=== PATIENT | female | born 1960 | race Caucasian/White ===

== ENCOUNTER → 2020-10-03 10:58 | Outpatient (CLI) | payer BC, SELFPAY ==
--- NOTE | ~2020-10-03 | XR_ITS ---
XR hip LT 2V w AP pelvis 10/03/2020 11:20 Indication: Inguinal pain. Procedure: AP pelvis and 2 views left hip Comparison: No prior studies for comparison. Findings: There is bilateral osteoarthritis of the hips, left greater than right. No fracture or trau matic malalignment. No significant soft tissue abnormality. No radiopaque foreign bodies. Impression: 1: Bilateral osteoarthritis of the hips, left greater than right. Reviewed, dictated and finalized at location B. ESSOR OF ASTRONOMY Impression: 1: Bilateral osteoarthritis of the hips, left greater than right.
== END ==
PROVIDERS: PCP Nurse Practitioner Family; Visit Provider Nurse Practitioner Family
DX: R10.2 Pelvic and perineal pain (principal); M16.0 Bilateral primary osteoarthritis of hip
CPT/HCPCS: 73502

== ENCOUNTER → 2023-07-23 14:50 | Outpatient (CLI) | payer BC, SELFPAY ==
--- NOTE | ~2023-07-23 | DEXA_ITS ---
Bone Density Report Name: TOBY MIRELES Age: 63 Sex: Female Ethnicity: White Date of : 1960 Indication: postmenopausal; screening for osteoporosis; height loss; Referring Provider: Jessica, Serena Study: Bone densitometry was performed. Exam Date: July 23, 2023 Accession number: [id number] Bone Density: Region BMD T-score Z-score Classification AP Spine (L1, L2, L3) 0.904 -1.0 0.6 Normal Femoral Neck (Left) 0.678 -1.5 -0.1 Osteopenia Total Hip (Left) 0.658 -2.3 -1.2 Osteopenia Femoral Neck (Right) 0.786 -0.6 0.8 Normal Total Hip (Right) 0.734 -1.7 -0.6 Osteopenia Total Hip Mean 0.696 -2.0 -0.9 Osteopenia World Health Organization criteria for BMD impression classify patients as: Normal (T-score at or above -1.0), Osteopenia (T-score between -1.0 and -2.5), or Osteoporosis (T-score at or below -2.5). 10-year Fracture Risk(1): Major Osteoporotic Fracture 8.6% Hip Fracture 0.8% Reported Risk Factors: [place] (), Neck BMD=0.678, BMI=24.4 (1) FRAX(R) Version 3.08. Fracture probability calculated for an untreated patient. Fracture probability may be lower if the patient has received treatment. Clinical Information Provided by Patient: Has used the following medications: Vitamin D Patient maximum height was 68 Menopause Age: 50 No regular weight bearing exercise Drinks caffeinated beverages Onset of menses at age 14 Number of children 2 Impression: The patient has low bone mass, based on the Left Total Hip T-score. The patient has an estimated ten-year risk of hip fracture of 0.8% and an estimated ten-year risk of major fracture of 8.6%, based on the WHO FRAX algorithm. Discussion: BONE DENSITY IS LOW AT ONE OR MORE SKELETAL SITES. This patient's lowest T-score is low at one or more skeletal sites. It meets the World Health Organization's (WHO) criteria for ?low bone mass? (T-score between -1.0 and -2.5). The patient's 10-year risk of fracture as calculated by FRAX is less than the threshold where pharmacological therapy is recommended by the National Osteoporosis Foundation (NOF). However, all treatment decisions require clinical judgment and consideration of individual patient factors, including patient preferences, comorbidities, previous drug use, risk factors not captured in the FRAX model (e.g., frailty, falls, vitamin D deficiency, increased bone turnover, interval significant decline in bone density) and possible under or overestimation of fracture risk by FRAX. The patient should follow a healthful lifestyle (good nutrition with adequate calcium and vitamin D, and appropriate weight-bearing exercise). Follow-Up: Consider repeating this study in 2 to 3 years to reassess this patient's status, or sooner if there is some new clinical indication. Reported b
== END ==
PROVIDERS: PCP Nurse Practitioner; Visit Provider Nurse Practitioner
DX: Z13.820 Encounter for screening for osteoporosis (principal); M85.852 Other specified disorders of bone density and structure, left thigh; M85.851 Other specified disorders of bone density and structure, right thigh
CPT/HCPCS: 77080

== ENCOUNTER 2023-08-19 01:00 | Day surgery (SDC) | payer BC, SELFPAY ==
[2023-07-30 08:52] VITALS: BMI 24.3
--- NOTE | 2023-08-17 12:17 | SUR.PREOP ---
Patient called regarding upcoming procedure. Reviewed preop instructions, appointment times, and procedure prep.
[2023-08-19 09:23] VITALS: BP 118/73; PULSE 80; RESP 18; TEMP 36.7; O2SAT 99; BMI 24.2
[2023-08-19] MEDS: LACTATED RINGERS 1,000 ML 150 ML IV CONT (09:33)
--- NOTE | 2023-08-19 09:40 | PM.HPGS ---
History of Present Illness History of Present Illness Consent: Risks, benefits, and alternatives have been discussed and questions answered. Patient agrees to proceed with procedure. Chief complaint: positive cologuard Narrative: Nesha Melchor is a 63 year old female Presents for screening colonoscopy. Patient was found to have a positive screening Cologuard test. Patient's current weight appetite and bowel movements are normal. She denies abdominal pain. She has had no bleeding. Family history is noncontributory. Review of Systems Review of Systems: Review of systems noncontributory. [facility] Family History Family History (Updated 04/19/14 @ 07:13 by DOCTOR UNKNOWN) Mother Family history of malignant neoplasm of kidney Social History Social History Smoking status: Never smoker Alcohol intake: never Substance use type: does not use Living arrangements: other Additional living arrangements comments: with sp Meds Home Medications and Allergies Home Medications Medication Instructions Recorded Confirmed Type No Home Medications 08/19/23 08/19/23 History Allergies Allergy/AdvReac Type Severity Reaction Status Date / Time aspirin Allergy Unknown Rash Verified 08/19/23 09:21 Vital Signs Vital Signs - 24 hr 08/19/23 09:23 Temperature 98.1 F Pulse Rate 80 Respiratory Rate 18 Blood Pressure 118/73 Pulse Oximetry 99 Oxygen Delivery Room Air Exam Narrative: Physical exam reveals patient to be alert. Vital signs stable. HEENT exam is unremarkable. Lungs are clear to auscultation and for custom. Heart is without murmur or extra sounds. Abdomen bowel sounds are present soft nontender with no hepatosplenomegaly. Digital external rectal exam normal. Assessment and Plan Assessment and plan (1) Positive colorectal cancer screening using Cologuard test: Code(s): R19.5 - Other fecal abnormalities Status: Acute Assessment and Plan: Patient presents today for colonoscopy because Cologuard test was found to be positive. Further recommendations may be given after endoscopy.
--- NOTE | 2023-08-19 09:44 | P.PNAN_ITS ---
Anes - Initial Pre Proc Eval Procedure: Operation Date: 08/19/23 10:30 Proposed Procedures p Colonoscopy - Andrea Mack MD Date/Time: 08/19/23 09:44 Surgeon: Andrea Mack MD Pre Op Diagnosis: positive cologuard Patient Data Age: 63 Gender: F Height: 1.68 m Weight: 68 kg Last Vital Signs Temp 98.1 F 08/19/23 09:23 Pulse 80 08/19/23 09:23 Resp 18 08/19/23 09:23 BP 118/73 08/19/23 09:23 Pulse Ox 99 08/19/23 09:23 O2 Del Method Room Air 08/19/23 09:23 Allergies Allergy/AdvReac Type Severity Reaction Status Date / Time aspirin Allergy Unknown Rash Verified 08/19/23 09:21 Home Medications Medication Instructions Recorded Confirmed Type No Home Medications 08/19/23 08/19/23 History Patient hx anesthesia problems: none Family hx anesthesia problems: none Results Review: All pre-operative results and documents have been reviewed as part of the pre- operative evaluation. [facility] Family History Family History (Updated 04/19/14 @ 07:13 by DOCTOR UNKNOWN) Mother Family history of malignant neoplasm of kidney Social History Social History Smoking status: Never smoker Alcohol intake: never Substance use type: does not use Living arrangements: other Additional living arrangements comments: with sp Anes - Eval Final PreProcedure Day of Procedure 08/19/23 09:44 Patient weight: normal Heart: regular rate and rhythm Lungs: clear to auscultation Airway: Mallampati scale class II Neurological: alert and oriented Last oral intake: >/= 8 hours ASA classification: II Emergent: no Anesthetic plan: proceed Anesthesia type and monitoring: general GIVS and standard monitoring Results Review: All pre-operative results and documents have been reviewed as part of the pre- operative evaluation. Informed Consent: The patient's anesthetic plan and its attendant risks and benefits were discussed with the patient/family/POA. Questions were solicited and answers provided to the satisfaction of the patient/family/POA.
[2023-08-19 10:39] VITALS: BP 104/59; PULSE 70; RESP 18; O2SAT 100
[2023-08-19 10:49] VITALS: BP 120/65; PULSE 64; RESP 18; O2SAT 100
[2023-08-19 10:59] VITALS: BP 123/65; PULSE 68; RESP 20; O2SAT 100
== END 2023-08-19 11:17 | disposition home or self-care (01) ==
PROVIDERS: PCP Physician Assistant; Referring Provider Obstetrics & Gynecology Gynecology; Visit Provider Internal Medicine Gastroenterology
PROC: 0DJD8ZZ Inspection of Lower Intestinal Tract, Via Natural or Artificial Opening Endoscopic (ICD-10-PCS; CPT 45378; principal; 2023-08-19 10:30)
DX: R19.5 Other fecal abnormalities (principal); D12.3 Benign neoplasm of transverse colon; K57.30 Diverticulosis of large intestine without perforation or abscess without bleeding
CPT/HCPCS: 45385; 88305; J2704; J7120

== ENCOUNTER 2023-09-13 08:10 | Outpatient (CLI) | payer BC, SELFPAY ==
--- NOTE | ~2023-09-13 | XR_ITS ---
EXAMINATION: XR lg joint inject/asp w image DATE: 09/13/2023 09:22 INDICATION: Left hip arthritis TECHNIQUE: A time-out was performed to verify the patient's name, date of , and procedure to b e performed. The procedure including the risks, benefits, and alternatives was discussed with the pat ient. Risks discussed included bleeding and infection. The patient understood the risks and agreed to proceed. The skin overlying the left hip joint was prepped and draped in usual sterile fashion. An esthetic was administered with 1% lidocaine subcutaneously. A 22 G needle was advanced under fluoros copic guidance into the joint. Injection of 1 mL of Omnipaque 240 confirmed intra-articular position of the needle. Subsequently, injectate consisting of 3 mL of a 2:1 mixture of 0.5% Marcaine: 80 mg/ mL Depo-Medrol for a total dosage of 80 mg Depo-Medrol was instilled. Washout of contrast was seen co nfirming intra-articular administration. The needle was removed and the entry site was cleaned and dr essed. There were no immediate complications. Fluoroscopy exposure time was 0.1 minutes. The total n umber of images was 2. Total DAP was 0.378 Gycm^2 FINDINGS: Real-time fluoroscopy demonstrates the needle in the left hip joint. Mild to moderate left hip osteoarthritis. Patient's pain prior to procedure:2/10. Patient's pain following the procedure: 0/10. IMPRESSION: 1. Successful left hip joint injection of local anesthetic and steroid with decrease in the patient's presenting pain. Reviewed, dictated and finalized at location A. HING MAN IMPRESSION: 1. Successful left hip joint injection of local anesthetic and steroid with dec rease in the patient's presenting pain.
== END 2023-09-13 08:11 | disposition home or self-care (01) ==
LOC: ANHIMG 08:13
PROVIDERS: PCP Physician Assistant; Visit Provider Nurse Practitioner Family
DX: M16.12 Unilateral primary osteoarthritis, left hip (principal)
CPT/HCPCS: 20610; 77002; J1040; Q9966

== ENCOUNTER 2024-07-12 12:52 | Outpatient (CLI) | payer BC, SELFPAY ==
--- NOTE | ~2024-07-12 | US_ITS ---
EXAMINATION: US pelvic complete DATE: INDICATION: Postcoital and contact bleeding. TECHNIQUE: Multiple transabdominal sonographic images of the pelvis were obtained. COMPARISON: None. FINDINGS: The uterus measures 5.5 x 2.3 x 3.5 cm. There is no free fluid in the pelvis. The endometrial complex measures 3 mm in thickness. The ovaries are not visualized. IMPRESSION: 1. Normal uterus. 2. Ovaries not visualized. Reviewed, dictated and finalized at location A. [employer]
== END 2024-07-12 12:53 | disposition home or self-care (01) ==
PROVIDERS: PCP Nurse Practitioner Women's Health; Visit Provider Nurse Practitioner Women's Health
DX: N93.0 Postcoital and contact bleeding (principal)
CPT/HCPCS: 76856

== ENCOUNTER 2024-08-01 16:43 | Outpatient (CLI) | payer BC, SELFPAY ==
--- NOTE | ~2024-08-01 | XR_ITS ---
XR hip RT min 2V Ordering provider: Emmanuel Sandhu, UNRULY History: . R HIP PAIN . Comparison: None. FINDINGS: BONES: No acute fracture or dislocation. Possible bone island in the right femoral neck. Follow-up advised. HIP JOINT SPACES: Mild osteoarthritic changes. SACROILIAC JOINT SPACES/LUMBAR SPINE: The sacroiliac joint spaces are normal. Mild degenerative palma es of the visualized lower lumbar spine. PUBIC SYMPHYSIS: Normal. SOFT TISSUES: Normal. IMPRESSION: No acute osseous abnormality pelvis and right hip. Possible bone island in the right femoral neck. Follow-up advised. Reviewed, dictated and finalized at location A. SCREEN WORKER
== END 2024-08-01 16:44 | disposition home or self-care (01) ==
PROVIDERS: PCP Chiropractor; Visit Provider Chiropractor
DX: M25.551 Pain in right hip (principal)
CPT/HCPCS: 73502

== ENCOUNTER 2025-03-16 12:52 | Outpatient (CLI) | payer BC, SELFPAY ==
--- NOTE | ~2025-03-16 | US_ITS ---
EXAMINATION: US pelvic complete INDICATION: Postmenopausal bleeding Comparison:Ultrasound dated 07/12/2024 TECHNIQUE: Multiple transabdominal sonographic images of the pelvis performed. FINDINGS: The uterus measures 7 x 2.8 x 3.4 cm. The endometrial complex measures 3 mm. The ovaries are nonvisualized. There is no free fluid in the pelvis. There are no abnormal masses seen on either side. IMPRESSION: 1. Unremarkable pelvic ultrasound. Reviewed, dictated and finalized at location B.
== END 2025-03-16 12:53 | disposition home or self-care (01) ==
LOC: MICIMG 12:53
PROVIDERS: PCP Nurse Practitioner; Visit Provider Obstetrics & Gynecology Gynecology
DX: N95.0 Postmenopausal bleeding (principal)
CPT/HCPCS: 76856